=== PATIENT | female | born 1985 | race Caucasian/White ===

== ENCOUNTER → 2017-05-08 | Outpatient (CLI) | payer BC ==
--- NOTE | 2017-05-08 11:48 | Diagnostic Imaging Report ---
PROCEDURE: X-RAY CHEST, TWO VIEWS COMPARISON: None. INDICATIONS: RULE OUT TB FINDINGS: Lungs are well-inflated. No focal airspace consolidation, pleural effusion, or pneumothorax. Hazy opacity over the right lower lung is presumably related to a breast implant. Cardiomediastinal contour and pulmonary vasculature are within normal limits. No consolidation, calcification, or cavitation. No acute osseous abnormality. CONCLUSION: No acute cardiopulmonary abnormality. No radiographic evidence of active granulomatous disease. Dictated by: Tono Gilbert M.D. on 05/08/2017 at 11:56 Electronically approved by: Tono Gilbert M.D. on 05/08/2017 at 11:56
== END ==
LOC: RAD 11:11
PROVIDERS: ATTEND Anesthesiology
DX: R76.11 Nonspecific reaction to tuberculin skin test without active tuberculosis (principal)
CPT/HCPCS: 71020

== ENCOUNTER → 2017-06-20 | Outpatient (CLI) | payer BC ==
[~2017-06-20] MED LIST: DIATRIZOATE MEGL/DIATRIZOA SOD 30 ML BTL PO ONE; IOPAMIDOL 370 MG/ML 200 ML INFUS..BTL INJ ONE; SODIUM CHLORIDE 0.9% 50ML 50 ML ONE
--- NOTE | 2017-06-20 18:42 | Diagnostic Imaging Report ---
PROCEDURE: CT ABDOMEN AND PELVIS WITH CONTRAST TECHNIQUE: The abdomen and pelvis were scanned utilizing a multidetector helical scanner from the diaphragm to the lesser trochanter after the IV administration of 100 cc of Isovue 370 and the oral administration of Gastroview. Coronal and sagittal multiplanar reformations were obtained. DLP: 811.67 mGy-cm COMPARISON: None. INDICATIONS: LEFT LOWER QUAD PAIN 1 WEEK FINDINGS: LOWER THORAX: Normal. HEPATOBILIARY: No focal hepatic lesions. No biliary ductal dilatation. SPLEEN: No splenomegaly. PANCREAS: No focal masses or ductal dilatation. ADRENALS: No adrenal nodules. KIDNEYS/URETERS: No hydronephrosis, stones, or solid mass lesions. PELVIC ORGANS/BLADDER: Unremarkable. Ovaries are relatively similar in size PERITONEUM / RETROPERITONEUM: No free air or fluid. LYMPH NODES: No lymphadenopathy. VESSELS: Unremarkable. GI TRACT: No distention or wall thickening. Appendix is normal. No evidence of diverticulitis. Normal amount of stool in the colon. Lap in place with normal phi angle. BONES AND SOFT TISSUES: Low transverse scar with a round hyperattenuating 2.3 x 1.9 x 1.8 cm (SI x AP x TV) nodule along the scar in the left lower quadrant (series 2 image 72). Partially visualized port along the inferior aspect of the right lateral chest wall which may represent the port of an expandable breast implant. No acute osseous abnormalities. IMPRESSION: 1. Round hyperattenuating 1.9 cm nodule along a scar in the left lower quadrant is suspicious for scar endometrioma. 2. No acute intraabdominal abnormalities. 1. Dictated by: Roger Mckeon M.D. on 06/20/2017 at 18:41 Electronically approved by: Roger Mckeon M.D. on 06/20/2017 at 18:41
== END ==
LOC: CT 17:04
PROVIDERS: ATTEND Surgery
DX: R10.32 Left lower quadrant pain (principal)
CPT/HCPCS: 74177; Q9967

== ENCOUNTER → 2017-06-25 | Day surgery (SDC) | payer BC ==
[2017-06-22 13:08] LABS: BASOPHILS % 0.4 % (0.0-1.0); EOSINOPHILS # (AUTO) 0.1 (0.0-0.4); HEMATOCRIT 37.8 % (34.2-44.1); HEMOGLOBIN 12.9 g/dL (12.0-16.0); LYMPHOCYTES # (AUTO) 1.7 (1.0-3.2); LYMPHOCYTES % 24.9 % (18.0-39.1); MEAN CORPUSCULAR HEMOGLOBIN 29.2 pg (28-32); MEAN CORPUSCULAR HGB CONC 34.1 g/dL (31-35); MEAN CORPUSCULAR VOLUME 85.5 fL (81-99); MONOCYTES # (AUTO) 0.3 (0.2-0.8); MONOCYTES % 4.8 % (4.4-11.3); NEUTROPHILS # (AUTO) 4.6 (2.1-6.9); NEUTROPHILS % 68.8 % (38.7-80.0); PLATELET COUNT 216 x10e3/uL (140-360); RED BLOOD COUNT 4.42 x10e6/uL (3.6-5.1); RED CELL DISTRIBUTION WIDTH 12.2 % (11.7-14.4)
[~2017-06-25] MED LIST changes: +BUPIVACAINE 0.25% 30ML SDV INJ ONE; +BUPIVACAINE LIPOSOME/PF 266 MG/20 ML IJ ONE; +CEFAZOLIN SOD 1 GM VIAL ONE; +DEXAMETHASONE SOD PHOS INJ 4 MG/ML VIAL ONE; -DIATRIZOATE MEGL/DIATRIZOA SOD 30 ML BTL PO ONE; +FENTANYL CITRATE/PF 100MCG/2 ML INJ ONE; +GLYCOPYRROLATE INJ 1MG/ 5 ML SYR ONE; -IOPAMIDOL 370 MG/ML 200 ML INFUS..BTL INJ ONE; +LIDOCAINE HCL 2% LOCAL INJ 5 ML SDV VIAL INJ ONE; +MIDAZOLAM HCL 2 MG/2 ML VIAL ONE; +NEOSTIGMINE 5 MG/5ML SYR ONE; +ONDANSETRON HCL INJ 2 MG/ML VIAL ONE; +PROPOFOL IV EMULSION 10 MG/ML 20 ML VIAL ONE; +ROCURONIUM BROMIDE 10 MG/ML 5ML VIAL ONE; +SEVOFLURANE INHAL SOLN 250 ML PEN BTL ONE; -SODIUM CHLORIDE 0.9% 50ML 50 ML ONE
--- NOTE | 2017-06-25 10:45 | Operative Report ---
DATE OF PROCEDURE: June 25, 2017 PREOPERATIVE DIAGNOSIS: Tumor of the abdominal wall, probable endometrioma. POSTOPERATIVE DIAGNOSIS: Tumor of the abdominal wall, probable endometrioma. OPERATION PERFORMED: Resection of tumor of the abdominal wall. ANESTHESIA: General. COMPLICATIONS: None. ESTIMATED BLOOD LOSS: Minimal. DESCRIPTION OF PROCEDURE: With the patient lying in bed in the supine position, under good general endotracheal anesthesia, the abdomen was prepped with Betadine solution and draped in the usual manner. Incision was made in the left lower quadrant of the abdomen and carried down through the subcutaneous tissue. Immediately, a palpable mass became evident. The mass was then slowly and carefully from the surrounding structures with normal fat all the way around it. The mass was stuck to the superficial fascia of the lateral aspect of the anterior rectus sheath. This was included as part of the specimen. The mass was completely resected and sent for pathological examination. Hemostasis was then ascertained. The fascia was then reapproximated with a running suture of #0 Vicryl. All layers were infiltrated on the way out with a solution of Exparel and quarter percent Marcaine. The subcutaneous tissue was approximated with 3-0 Vicryl, and the skin was closed with subcuticular 5-0 Vicryl. Benzoin, Steri-Strips and dressings were applied. The sponge, lap and needle count was correct. The patient tolerated the procedure well and returned to the recovery room in stable condition. Job#: [id number]
== END | disposition home or self-care (01) ==
LOC: OR 06:40
PROVIDERS: ATTEND Surgery
DX: D49.2 Neoplasm of unspecified behavior of bone, soft tissue, and skin (principal); Z01.812 Encounter for preprocedural laboratory examination
CPT/HCPCS: 22900; 36415; 81025; 85025; 88305; C9290; J0690; J1100; J2001; J2250; J2405

== ENCOUNTER → 2020-02-25 | Outpatient (CLI) | payer BC, OTHER | LOC: RAD 08:39 | PROVIDERS: ATTEND Urology | DX: R76.11 Nonspecific reaction to tuberculin skin test without active tuberculosis (principal) | CPT/HCPCS: 71046 ==

== ENCOUNTER → 2020-05-05 | Outpatient (CLI) | payer OTHER ==
[~2020-05-05] MED LIST changes: -BUPIVACAINE 0.25% 30ML SDV INJ ONE; -BUPIVACAINE LIPOSOME/PF 266 MG/20 ML IJ ONE; -CEFAZOLIN SOD 1 GM VIAL ONE; +COVID-19 VACC, MRNA(MODERNA)/PF 100 MCG/0.5 ML VIAL IM ONE; -DEXAMETHASONE SOD PHOS INJ 4 MG/ML VIAL ONE; -FENTANYL CITRATE/PF 100MCG/2 ML INJ ONE; -GLYCOPYRROLATE INJ 1MG/ 5 ML SYR ONE; -LIDOCAINE HCL 2% LOCAL INJ 5 ML SDV VIAL INJ ONE; -MIDAZOLAM HCL 2 MG/2 ML VIAL ONE; -NEOSTIGMINE 5 MG/5ML SYR ONE; -ONDANSETRON HCL INJ 2 MG/ML VIAL ONE; -PROPOFOL IV EMULSION 10 MG/ML 20 ML VIAL ONE; -ROCURONIUM BROMIDE 10 MG/ML 5ML VIAL ONE; -SEVOFLURANE INHAL SOLN 250 ML PEN BTL ONE
== END ==
LOC: VACCPMC 16:30
DX: Z23 Encounter for immunization (principal); Z20.828 Contact with and (suspected) exposure to other viral communicable diseases

== ENCOUNTER → 2020-06-07 | Outpatient (CLI) | payer OTHER | LOC: VACCPMC 12:20 | DX: Z23 Encounter for immunization (principal); Z20.822 Contact with and (suspected) exposure to COVID-19 ==

== ENCOUNTER 2020-07-20 23:23 | Day surgery (SDC) | payer OTHER ==
[~2020-07-20] VITALS: Ht 162.6 cm; Wt 86.2 kg
[~2020-07-20 23:23] MED LIST changes: -ACETAMINOPHEN 1000 MG/100 ML 100 ML IV ONE; -CEFAZOLIN SOD 1 GM/NS 50ML 50 ML IV ONE; -DEXAMETHASONE SOD PHOS INJ 4 MG/ML VIAL ONE; -FAMOTIDINE 20 MG/2 ML VIAL IV ONE; -FENTANYL CITRATE/PF 100MCG/2 ML INJ ONE; -GLYCOPYRROLATE INJ 0.2 MG/ML VIAL ONE; -IBUPROFEN 800MG/ 200ML 200 ML IV ONE; -LIDOCAINE HCL (LTA) 4 ML SOLN ONE; -LIDOCAINE HCL 2% JELLY 5 ML TUBE ONE; -LIDOCAINE HCL 2% LOCAL INJ 5 ML SDV VIAL INJ ONE; -METOCLOPRAMIDE HCL 10 MG/2ML VIAL ONE; -MIDAZOLAM HCL 2 MG/2 ML VIAL ONE; -MORPHINE SULFATE INJ 4 MG/ML INJ 1ML ONE; -NEOSTIGMINE 1 MG/ML 10ML VIAL ONE; -ONDANSETRON HCL INJ 2MG/ML 2ML 2 MG/ML VIAL ONE; -PROPOFOL IV EMULSION 10 MG/ML 20 ML VIAL ONE; -ROCURONIUM BROMIDE 10 MG/ML 5ML VIAL IV ONE; -SCOPOLAMINE 1.5 MG PATCH ONE; -SEVOFLURANE INHAL SOLN 250 ML PEN BTL ONE
[2020-07-20] MEDS ORDERED: MORPHINE SULFATE INJ 2 MG/ML SYR IV STA ×2 (23:41→23:57)
[2020-07-20] MEDS ORDERED: ONDANSETRON HCL INJ 2MG/ML 2ML 2 MG/ML VIAL IV STA (23:41)
[2020-07-20] MEDS ORDERED: SODIUM CHLORIDE 0.9% 1000ML 1,000 ML IV ONE (23:45)
[2020-07-20] MEDS ORDERED: LIDOCAINE HCL 1% LOCAL INJ 20 ML VIAL INJ ONE (23:45)
[2020-07-20 23:47] LABS: BASOPHILS % 0.1 % (0.0-1.0); HEMOGLOBIN 11.8 g/dL (12.0-16.0); LYMPHOCYTES # (AUTO) 0.8 (1.0-3.2); LYMPHOCYTES % 7.6 % (18.0-39.1); MEAN CORPUSCULAR HEMOGLOBIN 29.8 pg (28-32); MEAN CORPUSCULAR HGB CONC 33.7 g/dL (31-35); MEAN CORPUSCULAR VOLUME 88.4 fL (81-99); MONOCYTES # (AUTO) 0.6 (0.2-0.8); MONOCYTES % 5.2 % (4.4-11.3); NEUTROPHILS # (AUTO) 9.3 (2.1-6.9); NEUTROPHILS % 86.7 % (38.7-80.0); PLATELET COUNT 221 x10e3/uL (140-360); RED BLOOD COUNT 3.96 x10e6/uL (3.6-5.1); RED CELL DISTRIBUTION WIDTH 11.8 % (11.7-14.4)
[2020-07-20 23:56] LABS: INR 0.91; PROTHROMBIN TIME 12.8 seconds (11.9-14.5)
[2020-07-21 00:03] LABS: ALANINE AMINOTRANSFERASE 14 IU/L (0-55); ALBUMIN 3.7 g/dL (3.5-5.0); ALBUMIN/GLOBULIN RATIO 1.2 (0.8-2.0); ALKALINE PHOSPHATASE 46 IU/L (40-150); ANION GAP 18.1 mmol/L (8-16); BLOOD UREA NITROGEN 12 mg/dL (7-26); BUN/CREATININE RATIO 13 (6-25); CALCIUM 8.7 mg/dL (8.4-10.2); CARBON DIOXIDE 21 mmol/L (22-29); CHLORIDE 103 mmol/L (98-107); CREATININE, SERUM 0.92 mg/dL (0.57-1.11); EST GLOMERULAR FILTRATION RATE > 60 ML/MIN (60-); GLUCOSE 149 mg/dL (74-118); POTASSIUM 4.1 mmol/L (3.5-5.1); SODIUM 138 mmol/L (136-145)
[2020-07-21] MEDS ORDERED: MORPHINE SULFATE INJ 2 MG/ML SYR IV STA (00:23)
[2020-07-21] MEDS ORDERED: ONDANSETRON HCL INJ 2MG/ML 2ML 2 MG/ML VIAL IV PRN (00:30)
[2020-07-21] MEDS ORDERED: SODIUM CHLORIDE 0.9% 1000ML 1,000 ML IV SCH (00:30)
[2020-07-21] MEDS ORDERED: MORPHINE SULFATE INJ 2 MG/ML SYR IV PRN (00:30)
[2020-07-21] MEDS ORDERED: CEFAZOLIN SOD 1 GM/NS 50ML 100 ML IV SCH ×3 (01:40→06:00)
[2020-07-21] MEDS ORDERED: FENTANYL CITRATE/PF 100MCG/2 ML INJ ONE ×2 (06:07→08:07)
[2020-07-21] MEDS ORDERED: MIDAZOLAM HCL 2 MG/2 ML VIAL ONE (06:07)
[2020-07-21] MEDS ORDERED: VANCOMYCIN HCL 1 GM VIAL ONE (06:26)
[2020-07-21] MEDS ORDERED: MUPIROCIN 2% OINT 22 GM TUBE ONE (06:26)
[2020-07-21] MEDS ORDERED: BUPIVACAINE HCL 0.5% INJ 30 ML VIAL INJ ONE (06:27)
[2020-07-21] MEDS ORDERED: ACETAMINOPHEN 1000 MG/100 ML 100 ML IV ONE (07:22)
[2020-07-21 08:45] VITALS: BP 140/98
[2020-07-21] MEDS ORDERED: ROCURONIUM BROMIDE 10 MG/ML 5ML VIAL IV ONE (15:48)
[2020-07-21] MEDS ORDERED: LIDOCAINE HCL 2% LOCAL INJ 5 ML SDV VIAL INJ ONE (15:48)
[2020-07-21] MEDS ORDERED: DEXAMETHASONE SOD PHOS INJ 4 MG/ML VIAL ONE (15:48)
[2020-07-21] MEDS ORDERED: ONDANSETRON HCL INJ 2MG/ML 2ML 2 MG/ML VIAL ONE (15:48)
[2020-07-21] MEDS ORDERED: METOCLOPRAMIDE HCL 10 MG/2ML VIAL ONE (15:48)
[2020-07-21] MEDS ORDERED: SEVOFLURANE INHAL SOLN 250 ML PEN BTL ONE (15:48)
[2020-07-21] MEDS ORDERED: PROPOFOL IV EMULSION 10 MG/ML 20 ML VIAL ONE (15:48)
== END 2020-07-21 | disposition home or self-care (01) ==
LOC: ER 23:30 → OR 07-21 06:07
PROVIDERS: ATTEND Plastic Surgery
DX: M96.841 Postprocedural hematoma of a musculoskeletal structure following other procedure (principal); N64.89 Other specified disorders of breast
CPT/HCPCS: 17999; 21501; 36415 ×2; 80053; 84702; 85025; 85610; 85730; 86850; 86900; 99284; J0131; J0690; J1100; J2001 ×2; J2250; J2270; J2405; J2704; J2765; J3010; J3370; J7030

== ENCOUNTER → 2020-07-20 | Day surgery (SDC) | payer SELFPAY ==
[~2020-07-20] MED LIST changes: +ACETAMINOPHEN 1000 MG/100 ML 100 ML IV ONE; +CEFAZOLIN SOD 1 GM/NS 50ML 50 ML IV ONE; -COVID-19 VACC, MRNA(MODERNA)/PF 100 MCG/0.5 ML VIAL IM ONE; +DEXAMETHASONE SOD PHOS INJ 4 MG/ML VIAL ONE; +FAMOTIDINE 20 MG/2 ML VIAL IV ONE; +FENTANYL CITRATE/PF 100MCG/2 ML INJ ONE; +GLYCOPYRROLATE INJ 0.2 MG/ML VIAL ONE; +IBUPROFEN 800MG/ 200ML 200 ML IV ONE; +LIDOCAINE HCL (LTA) 4 ML SOLN ONE; +LIDOCAINE HCL 2% JELLY 5 ML TUBE ONE; +LIDOCAINE HCL 2% LOCAL INJ 5 ML SDV VIAL INJ ONE; +METOCLOPRAMIDE HCL 10 MG/2ML VIAL ONE; +MIDAZOLAM HCL 2 MG/2 ML VIAL ONE; +MORPHINE SULFATE INJ 4 MG/ML INJ 1ML ONE; +NEOSTIGMINE 1 MG/ML 10ML VIAL ONE; +ONDANSETRON HCL INJ 2MG/ML 2ML 2 MG/ML VIAL ONE; +PROPOFOL IV EMULSION 10 MG/ML 20 ML VIAL ONE; +ROCURONIUM BROMIDE 10 MG/ML 5ML VIAL IV ONE; +SCOPOLAMINE 1.5 MG PATCH ONE; +SEVOFLURANE INHAL SOLN 250 ML PEN BTL ONE; +VICODIN HP 10-1 EAC1 PO
[2020-07-20 12:30] VITALS: BP 148/99
== END | disposition home or self-care (01) ==
LOC: OR 06:19
PROVIDERS: ATTEND Plastic Surgery
DX: Q83 Congenital malformations of breast (principal); N62 Hypertrophy of breast; T85.898A Other specified complication of other internal prosthetic devices, implants and grafts, initial encounter; T85.44XA Capsular contracture of breast implant, initial encounter; N64.81 Ptosis of breast; Y83.4 Other reconstructive surgery as the cause of abnormal reaction of the patient, or of later complication, without mention of misadventure at the time of the procedure; Z01.812 Encounter for preprocedural laboratory examination; Z20.822 Contact with and (suspected) exposure to COVID-19
CPT/HCPCS: 11971; 19316; 19318; J0131; J0690; J1100; J2001 ×2; J2250; J2270; J2405; J2704; J2710; J2765; J3010; U0002

== ENCOUNTER → 2020-08-10 | Day surgery (SDC) | payer OTHER ==
[~2020-08-10] MED LIST changes: +ACETAMINOPHEN 1000 MG/100 ML 100 ML IV ONE; +BUPIVACAINE HCL 0.5% INJ 30 ML VIAL INJ ONE; +CEFAZOLIN SOD 1 GM/NS 50ML 50 ML IV ONE; +CLINDAMYCIN PHOS 300MG/2ML VIAL ONE; +DEXAMETHASONE SOD PHOS INJ 4 MG/ML VIAL ONE; +FENTANYL CITRATE/PF 100MCG/2 ML INJ ONE; +LIDOCAINE HCL 2% JELLY 5 ML TUBE ONE; +LIDOCAINE HCL 2% LOCAL INJ 5 ML SDV VIAL INJ ONE; +MIDAZOLAM HCL 2 MG/2 ML VIAL ONE; +MUPIROCIN 2% OINT 22 GM TUBE ONE; +ONDANSETRON HCL INJ 2MG/ML 2ML 2 MG/ML VIAL ONE; +PROPOFOL IV EMULSION 10 MG/ML 20 ML VIAL ONE; +SCOPOLAMINE 1.5 MG PATCH ONE; +SEVOFLURANE INHAL SOLN 250 ML PEN BTL ONE
[2020-08-10 08:50] VITALS: BP 126/93
== END | disposition home or self-care (01) ==
LOC: OR 05:08
PROVIDERS: ATTEND Plastic Surgery
DX: L76.32 Postprocedural hematoma of skin and subcutaneous tissue following other procedure (principal); Y83.4 Other reconstructive surgery as the cause of abnormal reaction of the patient, or of later complication, without mention of misadventure at the time of the procedure; Z01.812 Encounter for preprocedural laboratory examination; Z20.822 Contact with and (suspected) exposure to COVID-19
CPT/HCPCS: 10140; J0131; J0690; J3010; U0002; J1100; J2001; J2250; J2405

== ENCOUNTER → 2021-11-17 | Outpatient (CLI) | payer OTHER ==
[~2021-11-17] MED LIST changes: -ACETAMINOPHEN 1000 MG/100 ML 100 ML IV ONE; -BUPIVACAINE HCL 0.5% INJ 30 ML VIAL INJ ONE; -CEFAZOLIN SOD 1 GM/NS 50ML 50 ML IV ONE; -CLINDAMYCIN PHOS 300MG/2ML VIAL ONE; -DEXAMETHASONE SOD PHOS INJ 4 MG/ML VIAL ONE; -FENTANYL CITRATE/PF 100MCG/2 ML INJ ONE; -LIDOCAINE HCL 2% JELLY 5 ML TUBE ONE; -LIDOCAINE HCL 2% LOCAL INJ 5 ML SDV VIAL INJ ONE; -MIDAZOLAM HCL 2 MG/2 ML VIAL ONE; -MUPIROCIN 2% OINT 22 GM TUBE ONE; -ONDANSETRON HCL INJ 2MG/ML 2ML 2 MG/ML VIAL ONE; -PROPOFOL IV EMULSION 10 MG/ML 20 ML VIAL ONE; -SCOPOLAMINE 1.5 MG PATCH ONE; -SEVOFLURANE INHAL SOLN 250 ML PEN BTL ONE
== END ==
LOC: RAD 07:45
PROVIDERS: ATTEND Urology
DX: Z01.818 Encounter for other preprocedural examination (principal)
CPT/HCPCS: 71046; 86803